=== PATIENT | female | born 1960 | race Caucasian/White ===

== ENCOUNTER → 2016-07-15 | Outpatient (CLI) | payer BC ==
[~2016-07-15] MED LIST: BACTRIM DS 8001 TAB PO; BENADRYL25 M2 PO; CEPHALEXIN500 M1 PO; NORCO 325 MG-51 TAB PO; PHENERGAN 25 TA25 MG PO; ZANTAC 150MG T150 MG PO
== END ==
LOC: COL.VAS 13:36
DX: R09.89 Other specified symptoms and signs involving the circulatory and respiratory systems (principal); F17.210 Nicotine dependence, cigarettes, uncomplicated; M25.571 Pain in right ankle and joints of right foot

== ENCOUNTER 2016-12-18 13:45 | Outpatient (RCR) | payer BC | END 2016-12-22 | LOC: MKS.ESL.PT | DX: M25.571 Pain in right ankle and joints of right foot (principal); Z98.890 Other specified postprocedural states ==

== ENCOUNTER 2017-01-08 15:30 | Outpatient (RCR) | payer BC, OTHER | END 2017-03-25 | disposition home or self-care (01) | LOC: MKS.ESL.PT | DX: M25.571 Pain in right ankle and joints of right foot (principal) ==

== ENCOUNTER → 2017-02-12 | Outpatient (CLI) | payer BC | LOC: MHCPAIN 13:11 | DX: G89.29 Other chronic pain (principal); M25.571 Pain in right ankle and joints of right foot; M79.1 Myalgia | CPT/HCPCS: G0463 ==

== ENCOUNTER → 2017-04-02 | Outpatient (CLI) | payer BC | LOC: MHCPAIN 15:40 | DX: G89.29 Other chronic pain (principal); M79.2 Neuralgia and neuritis, unspecified; M79.1 Myalgia; M25.571 Pain in right ankle and joints of right foot; Z87.891 Personal history of nicotine dependence | CPT/HCPCS: G0463 ==

== ENCOUNTER → 2017-04-30 | Outpatient (CLI) | payer BC | LOC: MHCPAIN 14:01 | DX: G89.29 Other chronic pain (principal); M79.2 Neuralgia and neuritis, unspecified; M79.1 Myalgia; M25.571 Pain in right ankle and joints of right foot | CPT/HCPCS: G0463 ==

== ENCOUNTER → 2017-05-15 | Outpatient (CLI) | payer BC | LOC: MHCPAIN 09:39 | DX: M19.171 Post-traumatic osteoarthritis, right ankle and foot (principal) | CPT/HCPCS: J1040; Q9967 ==

== ENCOUNTER → 2018-11-12 | Outpatient (CLI) | payer BC | LOC: MC.RAD 07:14 | DX: Z12.31 Encounter for screening mammogram for malignant neoplasm of breast (principal) ==

== ENCOUNTER → 2022-06-27 | Outpatient (CLI) | payer OTHER | LOC: MC.RAD 14:36 | DX: Z12.31 Encounter for screening mammogram for malignant neoplasm of breast (principal) ==